=== PATIENT | male | born 1945 | race African-American/Black ===

== ENCOUNTER 2018-03-31 21:34 | Inpatient (IN) | payer OTHER, BC ==
--- NOTE | 2018-03-31 22:11 | PDOC ---
History of Present Illness <Eva Monsalve - Last Filed: 04/02/18 21:03> - History of Present Illness Initial Comments: 72 year old male with PMH of, status post CABG, PVD, presenting with cough, fever, and generalized weakness for the past day. Per his family he has been feeling very weak for the past day and actually fell yesterday morning at 1 AM but denied head trauma, LOC or other symptoms, stats that he fell because he felt very weak. He was febrile to 102 degrees at home and had a non-productive cough today. His blood pressure was also elevated to 170s at home and his family was worried because he "was not acting himself". Denies any nausea, vomiting, diarrhea, chest pain, SOB, or other symptoms. 03/31/18 22:13 <Kiarra Pickett - Last Filed: 04/03/18 15:19> - General Chief Complaint: SIRS, Suspected/Possible Stated Complaint: Altered Mental Status Time Seen by Provider: 03/31/18 22:10 Past History <Eva Monsalve - Last Filed: 04/02/18 21:03> - Past Medical History Anemia: No Asthma: No Cancer: Yes Cardiac Disorders: Yes (BY PASS) CVA: No CHF: No Dementia: No Diabetes: Yes GI Disorders: Yes Disorders: No HTN: Yes Hypercholesterolemia: Yes Liver Disease: Yes Seizures: No Thyroid Disease: Yes - Surgical History Abdominal Surgery: No Appendectomy: No Cardiac Surgery: Yes (BYPASS) Cholecystectomy: No Lung Surgery: No Neurologic Surgery: No Orthopedic Surgery: No - Suicide/Smoking/Psychosocial Hx Smoking Status: No Smoking History: Never smoked Have you smoked in the past 12 months: No Number of Cigarettes Smoked Daily: 0 If you are a former smoker, when did you quit?: 7 Information on smoking cessation initiated: No Hx Alcohol Use: No Drug/Substance Use Hx: No <Kiarra Pickett - Last Filed: 04/03/18 15:19> - Past Medical History Allergies/Adverse Reactions: Allergies Allergy/AdvReac Type Severity Reaction Status Date / Time No Known Allergies Allergy Verified 03/31/18 22:05 Home Medications: Ambulatory Orders Clonazepam 0.5 mg PO TID 07/04/12 Simvastatin [Zocor -] 40 mg PO DAILY 07/04/12 Zolpidem Tartrate [Ambien] 10 mg PO HS 07/04/12 Gabapentin 600 mg PO TID 03/31/18 Telmisartan/Hydrochlorothiazid [Telmisartan-Hctz 40-12.5 mg Tb] 1 tab PO DAILY 03/31/18 Amlodipine Besylate [Norvasc -] 10 mg PO DAILY #30 tablet 04/03/18 Cefuroxime Axetil [Ceftin -] 500 mg PO Q12H #14 tablet 04/03/18 Labetalol HCl [Normodyne -] 200 mg PO BID #60 tablet 04/03/18 Review of Systems - Review of Systems Constitutional: Yes: Chills, Diaphoresis, Fever, Loss of Appetite HEENTM: No: Eye Pain, Blurred Vision, Tearing Respiratory: Yes: Cough, Shortness of Breath, Wheezing, Productive cough. No: SOB with Exertion, SOB at Rest Cardiac (ROS): Yes: Lightheadedness. No: Chest Pain, Irregular Heart Rate, Palpitations, Syncope ABD/GI: No: Diarrhea, Nausea, Vomiting : No: Burning, Dysuria, Flank Pain Musculoskeletal: Yes: Muscle Weakness. No: Back Pain, Joint Pain, Muscle Pain Integumentary: No: Bruising, Lesions, Lumps Neurological: No: Headache, Numbness, Paresthesia, Pre-Existing Deficit, Seizure Psychiatric: No: Anxiety, Depression Hematologic/Lymphatic: No: Anemia, Blood Clots, Easy Bleeding <Kiarra Pickett - Last Filed: 04/03/18 15:19> *Physical Exam - Vital Signs Last Vital Signs Temp Pulse Resp BP Pulse Ox 102.8 F H 122 H 18 170/84 99 03/31/18 21:40 03/31/18 21:40 03/31/18 21:40 03/31/18 21:40 03/31/18 21:40 <Eva Monsalve - Last Filed: 04/02/18 21:03> - Vital Signs Last Vital Signs Temp Pulse Resp BP Pulse Ox 102.8 F H 122 H 18 170/84 99 03/31/18 21:40 03/31/18 21:40 03/31/18 21:40 03/31/18 21:40 03/31/18 21:40 - Physical Exam General Appearance: Yes: Nourished, Appropriately Dressed, Apparent Distress, Mild Distress HEENT: positive: EOMI, ASHLEY. negative: Normal ENT Inspection (dry mucous membrans) Neck: positive: Normal Thyroid, Supple. negative: Tender, Trachea midline, Rigid Respiratory/Chest: positive: Lungs Clear, Normal Breath Sounds, Respiratory Distress (mild respiratory distress with increased RR), Rapid RR. negative: Chest Tender, Accessory Muscle Use Cardiovascular: positive: Regular Rhythm, Tachycardia. negative: Regular Rate Gastrointestinal/Abdominal: positive: Normal Bowel Sounds, Flat, Soft. negative : Tender Lymphatic: negative: Adenopathy, Tenderness Musculoskeletal: positive: Normal Inspection. negative: Decreased Range of Motion Extremity: positive: Normal Capillary Refill, Normal Inspection, Normal Range of Motion. negative: Tender Integumentary: positive: Normal Color, Dry, Warm Neurologic: positive: Fully Oriented, Alert, Normal Mood/Affect, Normal Response , Motor Strength 5/5 <Kiarra Pickett - Last Filed: 04/03/18 15:19> Moderate Sedation - Procedure Monitoring Vital Signs: Procedure Monitoring Vital Signs Temperature 102.8 F H 03/31/18 21:40 Pulse Rate 122 H 03/31/18 21:40 Respiratory Rate 18 03/31/18 21:40 Blood Pressure 170/84 03/31/18 21:40 O2 Sat by Pulse Oximetry (%) 99 03/31/18 21:40 <Eva Monsalve - Last Filed: 04/02/18 21:03> - Procedure Monitoring Vital Signs: Procedure Monitoring Vital Signs Temperature 102.8 F H 03/31/18 21:40 Pulse Rate 122 H 03/31/18 21:40 Respiratory Rate 18 03/31/18 21:40 Blood Pressure 170/84 03/31/18 21:40 O2 Sat by Pulse Oximetry (%) 99 03/31/18 21:40 <Kiarra Pickett - Last Filed: 04/03/18 15:19> ED Treatment Course - LABORATORY CBC & Chemistry Diagram: 04/02/18 06:00 04/02/18 06:00 - ADDITIONAL ORDERS Additional order review: Laboratory Results 03/31/18 03/31/18 03/31/18 22:54 22:47 22:47 PT with INR 14.30 H INR 1.21 H PTT (Actin FS) 31.5 VBG pH 7.50 H POC VBG pCO2 34.4 L POC VBG pO2 49.3 H Mixed VBG HCO3 26.7 H Urine Color Yellow Urine Appearance Clear Urine pH 5.0 Ur Specific [place] 1.019 Urine Protein 1+ H Urine Glucose (UA) Negative Urine Ketones Negative Urine Blood 2+ H Urine Nitrite Negative Urine Bilirubin Negative Urine Urobilinogen Negative Ur Leukocyte Esterase Negative Urine WBC (Auto) <1 Urine RBC (Auto) <1 Urine Mucus Rare 03/31/18 22:47 RBC 4.80 MCV 87.4 MCHC 33.9 RDW 16.2 H MPV 8.2 Neutrophils % 83.4 H Lymphocytes % 3.4 L Monocytes % 12.3 H Eosinophils % 0.1 Basophils % 0.8 - Medications Given in the ED: ED Medications Discontinued Medications Generic Name Dose Route Start Last Admin Trade Name Presley PRN Reason Stop Dose Admin Acetaminophen 1,000 mg 03/31/18 22:12 03/31/18 23:27 Ofirmev Injection - IVPB 03/31/18 22:13 1,000 mg ONCE ONE Administration Azithromycin 500 mg/ Dextrose 250 mls @ 250 mls/hr 03/31/18 23:10 04/01/18 00 :06 IVPB 04/01/18 00:09 250 mls/hr ONCE ONE Administration Ceftriaxone Sodium 1 gm/ 50 mls @ 100 mls/hr 03/31/18 23:10 04/01/18 00:06 Dextrose IVPB 03/31/18 23:39 100 mls/hr ONCE ONE Administration Sodium Chloride 500 ml 03/31/18 23:09 03/31/18 23:27 Normal Saline - IV 03/31/18 23:10 500 ml ONCE ONE Administration <Eva Monsalve - Last Filed: 04/02/18 21:03> - LABORATORY CBC & Chemistry Diagram: 04/03/18 06:00 04/03/18 06:00 <Kiarra Pickett - Last Filed: 04/03/18 15:19> Medical Decision Making - Medical Decision Making 04/01/18 00:32 Patient Name: OSMAN HASSAN THIS IS A PRELIMINARY REPORT FROM [facility] DATE OF SERVICE: 2018-03-31 22:22:32 IMAGES: 2 EXAM: CHEST X-RAY PORTABLE* HISTORY: Rule out pneumonia COMPARISON: None. FINDINGS: Heart size is normal. Status post CABG. Lungs are clear. No pleural effusion. Tiny density overlying the peripheral right upper lobe is likely outside the patient. IMPRESSION: No acute pathology. <Eva Monsalve - Last Filed: 04/02/18 21:03> - Medical Decision Making 72 year old male presenting with fever,. tachycardia, tachypnea and generally appearing unwell after two days of cough and upper respiratory symptoms. CXR is clear without obvious sign of pneumonia. Patient's age, comorbidities, and septic presentation al are concerning for potential for acute decline in the outpatient setting, so will admit for observation. Patient antibiosed and given IV fluids + Tylenol with excellent relief of his symptoms. Spoke to hospitalists and patient admitted to med surg obs. <Kiarra Pickett - Last Filed: 04/03/18 15:19> *DC/Admit/Observation/Transfer <Eva Monsalve - Last Filed: 04/02/18 21:03> - Discharge Dispostion Decision to Admit order: Yes <Kiarra Pickett - Last Filed: 04/03/18 15:19> Diagnosis at time of Disposition: Pneumonia Qualifiers: Pneumonia type: due to unspecified organism Laterality: unspecified laterality Lung location: unspecified part of lung Qualified Code(s): J18.9 - Pneumonia, unspecified organism - Discharge Dispostion Condition at time of disposition: Improved
[2018-03-31] MEDS ORDERED: ACETAMINOPHEN 1000 MG/100 ML VIAL (NON FORMULARY) IVPB ONE (22:12)
[2018-03-31] MEDS ORDERED: SODIUM CHLORIDE 0.9% 500 ML INFUS.BAG IV ONE (23:09)
[2018-03-31] MEDS ORDERED: CEFTRIAXONE 1 GM in DEXTROSE 5%-WATER - 50 ML IVPB ONE (23:10)
[2018-03-31] MEDS ORDERED: AZITHROMYCIN IVPB 500 MG in DEXTROSE 5%-WATER - 250 ML IVPB ONE (23:10)
[2018-03-31 23:11] LABS: BASO % 0.8 % (0-2.0); EOS % 0.1 % (0-4.5); HEMATOCRIT 41.9 % (35.4-49); HEMOGLOBIN 14.2 GM/dL (11.7-16.9); LYMPH % 3.4 % (8-40); MCH 29.7 pg (25.7-33.7); MCHC 33.9 g/dl (32.0-35.9); MEAN CELL VOLUME 87.4 fl (80-96); MEAN PLT VOLUME 8.2 fl (7.5-11.1); MONO % 12.3 % (3.8-10.2); NEUT % 83.4 % (42.8-82.8); PLATELET COUNT 177 K/MM3 (134-434); RDW 16.2 % (11.9-15.9); WHITE BLOOD COUNT 11.2 K/mm3 (4.0-10.0)
[2018-03-31 23:12] LABS: VENOUS PC02 34.4 mmHg (38-52); VENOUS PH 7.5 (7.32-7.42); VENOUS PO2 49.3 mmHg (28-48)
[2018-03-31 23:15] LABS: URINE APPEARANCE CLEAR; URINE BILIRUBIN NEGATIVE (<2.0 mg/dL); URINE COLOR YELLOW; URINE GLUCOSE (UA) NEGATIVE (NEGATIVE); URINE KETONE NEGATIVE (NEGATIVE); URINE LEUK ESTERASE NEGATIVE (NEGATIVE); URINE NITRITE NEGATIVE (NEGATIVE); URINE PROTEIN 1+ (NEGATIVE); URINE UROBILINOGEN NEGATIVE mg/dL (0.2-1.0)
[2018-03-31 23:24] LABS: INR 1.21 (0.83-1.09); PROTHROMBIN TIME (PATIENT) 14.3 SEC (9.7-13.0)
[2018-03-31 23:26] LABS: ACTIVATED PTT 31.5 SECONDS (25.2-36.5)
[2018-03-31] MEDS ORDERED: ACETAMINOPHEN INJECTION 100 ML IVPB ONE (23:28)
[2018-03-31 23:34] LABS: URINE MUCUS RARE
[2018-04-01] MEDS ORDERED: CEFTRIAXONE 1 GM/50 ML BAG ONE (00:05)
[2018-04-01] MEDS ORDERED: AZITHROMYCIN IVPB 500 MG/250 ML BAG IVPB ONE (00:05)
--- NOTE | 2018-04-01 00:56 | PDOC ---
Attending Attestation - Resident Resident Name: Kiarra Pickett - ED Attending Attestation I have performed the following: I have examined & evaluated the patient, The case was reviewed & discussed with the resident, I agree w/resident's findings & plan - HPI HPI: 04/01/18 00:54 Pt comes with fever and cough; r/o pneumonia vs r/o influenza. - Physicial Exam PE: 04/01/18 00:54 Agree with resident exam - Medical Decision Making 04/01/18 00:54 Pt has a WBC elevation; his Chest looks like a bilat pneumonia; however was read as normal chest. Flu negative; we treated with ceftriaxone and zithrromax. Pt will be admitted to obs. Chem is still pending, as the bloods are being done manually in the lab today - everything backed up 04/01/18 01:01 Patient Name: OSMAN HASSAN THIS IS A PRELIMINARY REPORT FROM [facility] DATE OF SERVICE: 2018-03-31 22:22:32 IMAGES: 2 EXAM: CHEST X-RAY PORTABLE* HISTORY: Rule out pneumonia COMPARISON: None. FINDINGS: Heart size is normal. Status post CABG. Lungs are clear. No pleural effusion. Tiny density overlying the peripheral right upper lobe is likely outside the patient. IMPRESSION: No acute pathology.
[2018-04-01 01:46] LABS: ANION GAP 8 MMOL/L (8-16); BLOOD UREA NITROGEN 16 mg/dL (7-18); CALCIUM 8.4 mg/dL (8.5-10.1); CHLORIDE 103 mmol/L (98-107); CO2 26 mmol/L (21-32); CREATININE 1.2 mg/dL (0.55-1.3); GLUCOSE,RANDOM 144 mg/dL (74-106); POTASSIUM 3.2 mmol/L (3.5-5.1); SODIUM 137 mmol/L (136-145)
[2018-04-01 01:47] LABS: ALBUMIN 3.7 g/dl (3.4-5.0); ALK PHOS 79 U/L (45-117); BILIRUBIN,TOTAL 0.7 mg/dL (0.2-1); SGOT/AST 23 U/L (15-37); SGPT/ALT 16 U/L (13-61)
[2018-04-01] MEDS ORDERED: POTASSIUM CHLORIDE TABS 20 MEQ TABLET.ER (FP) PO ONE ×2 (01:59→03:37)
--- NOTE | 2018-04-01 02:58 | HP ---
CHIEF COMPLAINT: fever and general malaise PCP: Dr. De Souza HISTORY OF PRESENT ILLNESS: 72M w/ pmhx of HTN, HLD, CABG (7 years ago) presented to the hospital after complaints of persistent fever and generalized malaise x1 day. He states yesterday morning, he was getting up to go to the bathroom when he fell due to b /l leg weakness. He states the night prior he started to "not feel himself" and the next day, his malaise had worsened. He remembers falling, but denies any trauma to the head or body; reports the fall was witnessed by his . He denies LOC. Admits to fever and chills since last night, but denies chest pain, sob, n/v, abd pain, urinary/bowel symptoms, blood in urine/stool. After he had fallen, he took his temperature at home which was 102.8. ER course was notable for: (1) Temp 102.8, HR 122, WBC 11.2, K 3.2, Glu 14 (2) Flu swab (-), CXR neg (3) Rocephin 1gm, Zithromax 500 mg, IV Tylenol, NS 500 mL Recent Travel: Denies PAST MEDICAL HISTORY: HTN HLD neuropathy PAST SURGICAL HISTORY: CABG x 7 years ago Social History: Smoking: Denies Alcohol: Denies Drugs: Denies Family History: Denies Allergies No Known Allergies Allergy (Verified 03/31/18 22:05) HOME MEDICATIONS: Home Medications Medication Instructions Recorded Clonazepam 0.5 mg PO TID 07/04/12 Simvastatin [Zocor -] 40 mg PO DAILY 07/04/12 Zolpidem Tartrate [Ambien] 10 mg PO HS 07/04/12 Gabapentin 600 mg PO TID 03/31/18 Metoprolol Tartrate 25 mg PO BID 03/31/18 Telmisartan/Hydrochlorothiazid 1 tab PO DAILY 03/31/18 [Telmisartan-Hctz 40-12.5 mg Tb] REVIEW OF SYSTEMS CONSTITUTIONAL: +f/c, +generalized weakness, +malaise HEENT: +cough, -rhinorrhea, -nasal congestion CARDIOVASCULAR: -chest pain, -palpitations, -irregular heart rate, -peripheral edema RESPIRATORY: +dry cough, -sob, -[place], -orthopnea, -wheezing GASTROINTESTINAL: -abd pain/distension, -n/v, -c/d GENITOURINARY: -dysuria, frequency, hematuria MUSCULOSKELETAL: -myalgia, -arthralgia, -back pain NEUROLOGIC: +focal weakness, +tingling b/l toes, -mental status changes PHYSICAL EXAMINATION Vital Signs - 24 hr 03/31/18 21:40 Temperature 102.8 F H Pulse Rate 122 H Respiratory 18 Rate Blood Pressure 170/84 O2 Sat by Pulse 99 Oximetry (%) GENERAL: AAOx3. NAD. Resting comfortable. HEENT: AT/NC. EOMI. ASHLEY. Dry mucus membranes. NECK: Normal range of motion, supple without lymphadenopathy, JVD, or masses. LUNGS: Decreased BS b/l. HEART: RRR. Normal, S1, S2. +systolic murmur LUSB. Vertical surgical scar seen on R side of chest. ABDOMEN: Soft, NT/ND. +BS in all 4Q's. No masses noted. MUSCULOSKELETAL: Normal range of motion at all joints. No bony deformities or tenderness. No CVA tenderness. EXTREMITIES: 2+ dorsalis pedis pulses, no peripheral edema noted b/l. NEUROLOGICAL: Cranial nerves II-XII intact. Normal speech. Normal gait. Laboratory Results - last 24 hr 03/31/18 03/31/18 03/31/18 22:40 22:47 22:47 WBC 11.2 H RBC 4.80 Hgb 14.2 Hct 41.9 MCV 87.4 MCH 29.7 MCHC 33.9 RDW 16.2 H Plt Count 177 MPV 8.2 Absolute Neuts (auto) 9.3 H Neutrophils % 83.4 H Lymphocytes % 3.4 L Monocytes % 12.3 H Eosinophils % 0.1 Basophils % 0.8 Nucleated RBC % 0 PT with INR 14.30 H INR 1.21 H PTT (Actin FS) 31.5 VBG pH POC VBG pCO2 POC VBG pO2 Mixed VBG HCO3 Sodium Potassium Chloride Carbon Dioxide Anion Gap BUN Creatinine Creat Clearance w eGFR Random Glucose Lactic Acid Calcium Total Bilirubin AST ALT Alkaline Phosphatase Troponin I Total Protein Albumin Urine Color Urine Appearance Urine pH Ur Specific [place] Urine Protein Urine Glucose (UA) Urine Ketones Urine Blood Urine Nitrite Urine Bilirubin Urine Urobilinogen Ur Leukocyte Esterase Urine WBC (Auto) Urine RBC (Auto) Urine Mucus Influenza A (Rapid) Negative Influenza B (Rapid) Negative 03/31/18 03/31/18 03/31/18 22:47 22:47 22:47 WBC RBC Hgb Hct MCV MCH MCHC RDW Plt Count MPV Absolute Neuts (auto) Neutrophils % Lymphocytes % Monocytes % Eosinophils % Basophils % Nucleated RBC % PT with INR INR PTT (Actin FS) VBG pH 7.50 H POC VBG pCO2 34.4 L POC VBG pO2 49.3 H Mixed VBG HCO3 26.7 H Sodium 137 Potassium 3.2 L Chloride 103 Carbon Dioxide 26 Anion Gap 8 BUN 16 Creatinine 1.2 Creat Clearance w eGFR 59.18 Random Glucose 144 H Lactic Acid Calcium 8.4 L Total Bilirubin 0.7 AST 23 ALT 16 Alkaline Phosphatase 79 Troponin I 0.04 Total Protein 8.0 Albumin 3.7 Urine Color Urine Appearance Urine pH Ur Specific [place] Urine Protein Urine Glucose (UA) Urine Ketones Urine Blood Urine Nitrite Urine Bilirubin Urine Urobilinogen Ur Leukocyte Esterase Urine WBC (Auto) Urine RBC (Auto) Urine Mucus Influenza A (Rapid) Influenza B (Rapid) 03/31/18 03/31/18 22:54 22:54 WBC RBC Hgb Hct MCV MCH MCHC RDW Plt Count MPV Absolute Neuts (auto) Neutrophils % Lymphocytes % Monocytes % Eosinophils % Basophils % Nucleated RBC % PT with INR INR PTT (Actin FS) VBG pH POC VBG pCO2 POC VBG pO2 Mixed VBG HCO3 Sodium Potassium Chloride Carbon Dioxide Anion Gap BUN Creatinine Creat Clearance w eGFR Random Glucose Lactic Acid 1.5 Calcium Total Bilirubin AST ALT Alkaline Phosphatase Troponin I Total Protein Albumin Urine Color Yellow Urine Appearance Clear Urine pH 5.0 Ur Specific [place] 1.019 Urine Protein 1+ H Urine Glucose (UA) Negative Urine Ketones Negative Urine Blood 2+ H Urine Nitrite Negative Urine Bilirubin Negative Urine Urobilinogen Negative Ur Leukocyte Esterase Negative Urine WBC (Auto) <1 Urine RBC (Auto) <1 Urine Mucus Rare Influenza A (Rapid) Influenza B (Rapid) ASSESSMENT/PLAN: 72M w/ pmhx of HTN, HLD, who presented with fever and generalized malaise admitted for sepsis 2/2 atypical pneumonia. #Sepsis 2/2 Atypical Pneumonia' -CXR neg with no infiltrates seen, could be viral -Rocephin 1gm IVPB; due to prolonged QTc (503 ms), will d/c Azithromycin and give Doxycycline 100 mg BID IVPB instead -Tylenol 650 mg Q6H PRN for fever -Legionella/S. Pneumo Urine Ag's ordered -IVf #Hypokalemia; 3.2 -KCl 10 mEq x 2 bags, KCl 20 mg PO -replete PRN; trend BMP -check Mg #HTN -Resume home meds once med rec'd #HLD -Resume home meds once med rec'd #Neuropathy -Resume home meds once med rec'd #Ppx -SQH #FEN -IVf -recheck lytes in AM (K+) -sodium-controlled diet dispo -full code -med to med-surg obs -needs med rec Visit type - Emergency Visit Emergency Visit: Yes ED Registration Date: 04/01/18 Care time: The patient presented to the Emergency Department on the above date and was hospitalized for further evaluation of their emergent condition. - New Patient This patient is new to me today: Yes Date on this admission: 04/01/18 - Critical Care Critical Care patient: No
[2018-04-01] MEDS ORDERED: SODIUM CHLORIDE 1,000 ML IV SCH (03:00)
[2018-04-01] MEDS ORDERED: KCL 10 MEQ IVPB 10 MEQ/100 ML INFUS.BAG IVPB ONE (03:37)
[2018-04-01] MEDS: KCL 10 MEQ IVPB 10 MEQ/100 ML INFUS.BAG IVPB SCH ×2 (03:43→06:34)
[2018-04-01] MEDS ORDERED: ACETAMINOPHEN 325 MG TABLET (FP) PO PRN (03:51)
[2018-04-01 04:33] VITALS: BMI 28.3
--- NOTE | 2018-04-01 04:51 | PN ---
Teaching Attending Note Name of Resident: Cherelle Shane ATTENDING PHYSICIAN STATEMENT I saw and evaluated the patient. I reviewed the resident's note and discussed the case with the resident. I agree with the resident's findings and plan as documented. SUBJECTIVE: Patient is a 72 year old man with PMH of CABG (7 years ago), HLD, HTN and PVD presenting with nonproductive cough, fever, and generalized weakness for the past day. Per his family he has been feeling very weak for the past day and actually fell yesterday morning at 1 AM but denied head trauma, LOC or other symptoms, stats that he fell because he felt very weak. He was febrile to 102 degrees at home and had a non-productive cough today. His blood pressure was also elevated to 170s at home and his family was worreid becuase he "was not acting himself". Denies any nausea, vomiting, diarrhea, chest pain, SOB, or other symptoms. OBJECTIVE: Alert Vital Signs Period Temp Pulse Resp BP Sys/Fischer Pulse Ox Last 24 Hr 99 F-102.8 F 74-122 16-18 127-170/65-84 96-99 HEENT: No Jaundice, eye redness or discharge, PERRLA, EOMI. Normocephalic, atraumatic. External ears are normal and hearing is grossly intact. No nasal discharge. Neck: Supple, nontender. No palpable adenopathy or thyromegaly. No JVD Chest: Good effort. Clear to auscultation and percussion. Heart: Regular. No S3, rub or murmur Abdomen: Not distended, soft, nontender and no HSM. No rebound or guarding. Normoactive bowel sounds. Ext: Peripheral pulses intact. No leg edema. Skin: Warm and dry. No petechiae, rash or ecchymosis. Neuro: Alert. Oriented x3. CN 2-12 grossly intact. Sensation grossly intact in all four extremities and DTR are symmetric. Current Medications Generic Name Dose Route Start Last Admin Trade Name Freq PRN Reason Stop Dose Admin Acetaminophen 650 mg 04/01/18 03:51 Tylenol - PO Q6H PRN FEVER Heparin Sodium (Porcine) 5,000 unit 04/01/18 06:00 Heparin - SQ TID KEELEY Azithromycin 500 mg in 250 mls @ 250 mls/hr 04/01/18 22:00 Zithromax 500mg Ivpb (Pre-Docked) IVPB HS KEELEY Ceftriaxone Sodium 1 gm/ 50 mls @ 100 mls/hr 04/01/18 22:00 Dextrose IVPB HS KEELEY Protocol Sodium Chloride 1,000 mls @ 75 mls/hr 04/01/18 03:00 04/01/18 03:36 Normal Saline - IV 04/02/18 16:19 75 mls/hr ASDIR KEELEY Administration Potassium Chloride 10 meq in 100 mls @ 100 mls/hr 04/01/18 03:15 04/01/18 03: 43 Potassium Chloride 10 Meq Premix Ivpb - IVPB 04/01/18 05:14 100 mls/hr Q60M KEELEY Administration Metoprolol Tartrate 25 mg 04/01/18 10:00 Lopressor - PO BID [facility] Potassium Chloride 20 meq 04/01/18 10:00 K-Dur - PO DAILY [facility] Home Medications Medication Instructions Recorded Clonazepam 0.5 mg PO TID 07/04/12 Simvastatin [Zocor -] 40 mg PO DAILY 07/04/12 Zolpidem Tartrate [Ambien] 10 mg PO HS 07/04/12 Gabapentin 600 mg PO TID 03/31/18 Metoprolol Tartrate 25 mg PO BID 03/31/18 Telmisartan/Hydrochlorothiazid 1 tab PO DAILY 03/31/18 [Telmisartan-Hctz 40-12.5 mg Tb] Abnormal Lab Results 03/31/18 03/31/18 03/31/18 22:47 22:47 22:47 WBC 11.2 H RDW 16.2 H Absolute Neuts (auto) 9.3 H Neutrophils % 83.4 H Lymphocytes % 3.4 L Monocytes % 12.3 H PT with INR 14.30 H INR 1.21 H VBG pH 7.50 H POC VBG pCO2 34.4 L POC VBG pO2 49.3 H Mixed VBG HCO3 26.7 H Potassium Random Glucose Calcium Urine Protein Urine Blood 03/31/18 03/31/18 22:47 22:54 WBC RDW Absolute Neuts (auto) Neutrophils % Lymphocytes % Monocytes % PT with INR INR VBG pH POC VBG pCO2 POC VBG pO2 Mixed VBG HCO3 Potassium 3.2 L Random Glucose 144 H Calcium 8.4 L Urine Protein 1+ H Urine Blood 2+ H ASSESSMENT AND PLAN: 1. Sepsis due to Atypical Pneumonia - No acute infiltrate on CXR - may be viral. Flu swab is negative. QTc is prolonged. Being treated with IV Rocephin and Azithromycin. Check urine legionella antigen. Hypokalemia may be due to HCTZ. Check Mg+ and getting KCL. Hypertension improved. 2. DVT prophylaxis - Lovenox 40 mg SQ q 24 hours. 3. Advance directives - Full code
[2018-04-01] MEDS: HEPARIN NA (PORCINE) 5,000 UNITS/ML 1ML VIAL SQ SCH ×3 (05:57→21:09)
[2018-04-01] MEDS ORDERED: GABAPENTIN 300 MG CAPSULE (FP) PO SCH (06:00)
[2018-04-01] MEDS ORDERED: PT OWN MED DRAWER 7, Y5N ONE ×2 (09:00→20:57)
[2018-04-01] MEDS: POTASSIUM CHLORIDE TABS 20 MEQ TABLET.ER (FP) PO SCH (09:43)
[2018-04-01] MEDS: METOPROLOL TARTRATE 25 MG TABLET (FP) PO SCH ×2 (09:43→21:09)
[2018-04-01] MEDS: DOXYCYCLINE INJECTION 100 MG in DEXTROSE 5%-WATER - 100 ML IVPB SCH ×2 (09:43→21:09)
[2018-04-01] MEDS ORDERED: PATIENT'S OWN MEDICATION (NON-FORMULARY) (Telmisartan/Hydrochlorothiazid [Telmisartan-Hctz PO SCH (10:00)
[2018-04-01] MEDS ORDERED: PATIENT'S OWN MEDICATION (NON-FORMULARY) (Simvastatin 40 MG) PO SCH (10:00)
--- NOTE | 2018-04-01 12:20 | PN ---
Progress Note (short form) - Note Progress Note: Vital Signs Temperature 99 F 04/01/18 10:00 Pulse Rate 81 04/01/18 10:00 Respiratory Rate 20 04/01/18 11:00 Blood Pressure 152/80 04/01/18 10:00 O2 Sat by Pulse Oximetry (%) 92 L 04/01/18 11:00 CBCD WBC 11.2 K/mm3 (4.0-10.0) H 03/31/18 22:47 RBC 4.80 M/mm3 (4.00-5.60) 03/31/18 22:47 Hgb 14.2 GM/dL (11.7-16.9) 03/31/18 22:47 Hct 41.9 % (35.4-49) 03/31/18 22:47 MCV 87.4 fl (80-96) 03/31/18 22:47 MCHC 33.9 g/dl (32.0-35.9) 03/31/18 22:47 RDW 16.2 % (11.9-15.9) H 03/31/18 22:47 Plt Count 177 K/MM3 (134-434) 03/31/18 22:47 MPV 8.2 fl (7.5-11.1) 03/31/18 22:47 CMP Sodium 137 mmol/L (136-145) 03/31/18 22:47 Potassium 3.2 mmol/L (3.5-5.1) L 03/31/18 22:47 Chloride 103 mmol/L (98-107) 03/31/18 22:47 Carbon Dioxide 26 mmol/L (21-32) 03/31/18 22:47 Anion Gap 8 MMOL/L (8-16) 03/31/18 22:47 BUN 16 mg/dL (7-18) 03/31/18 22:47 Creatinine 1.2 mg/dL (0.55-1.3) 03/31/18 22:47 Creat Clearance w eGFR 59.18 (>60) 03/31/18 22:47 Random Glucose 144 mg/dL (74-106) H 03/31/18 22:47 Calcium 8.4 mg/dL (8.5-10.1) L 03/31/18 22:47 Total Bilirubin 0.7 mg/dL (0.2-1) 03/31/18 22:47 AST 23 U/L (15-37) 03/31/18 22:47 ALT 16 U/L (13-61) 03/31/18 22:47 Alkaline Phosphatase 79 U/L (45-117) 03/31/18 22:47 Total Protein 8.0 g/dl (6.4-8.2) 03/31/18 22:47 Albumin 3.7 g/dl (3.4-5.0) 03/31/18 22:47 CARDIAC ENZYMES Troponin I 0.04 ng/ml (0.00-0.05) 03/31/18 22:47 Current Medications Generic Name Dose Route Start Last Admin Trade Name Freq PRN Reason Stop Dose Admin Acetaminophen 650 mg 04/01/18 03:51 04/01/18 08:44 Tylenol - PO 650 mg Q6H PRN Administration FEVER Heparin Sodium (Porcine) 5,000 unit 04/01/18 06:00 04/01/18 05:57 Heparin - SQ 5,000 unit TID KEELEY Administration Ceftriaxone Sodium 1 gm/ 50 mls @ 100 mls/hr 04/01/18 22:00 Dextrose IVPB HS KEELEY Protocol Sodium Chloride 1,000 mls @ 75 mls/hr 04/01/18 03:00 04/01/18 03:36 Normal Saline - IV 04/02/18 16:19 75 mls/hr ASDIR KEELEY Administration Doxycycline Hyclate 100 mg/ 100 mls @ 100 mls/hr 04/01/18 10:00 04/01/18 09: 43 Dextrose IVPB 100 mls/hr BID KEELEY Administration Metoprolol Tartrate 25 mg 04/01/18 10:00 04/01/18 09:43 Lopressor - PO 25 mg BID KEELEY Administration Potassium Chloride 20 meq 04/01/18 10:00 04/01/18 09:43 K-Dur - PO 20 meq DAILY KEELEY Administration Home Medications Medication Instructions Recorded Clonazepam 0.5 mg PO TID 07/04/12 Simvastatin [Zocor -] 40 mg PO DAILY 07/04/12 Zolpidem Tartrate [Ambien] 10 mg PO HS 07/04/12 Gabapentin 600 mg PO TID 03/31/18 Metoprolol Tartrate 25 mg PO BID 03/31/18 Telmisartan/Hydrochlorothiazid 1 tab PO DAILY 03/31/18 [Telmisartan-Hctz 40-12.5 mg Tb]
--- NOTE | 2018-04-01 16:38 | EKG ---
Test Reason : Blood Pressure : / mmHG Vent. Rate : 116 BPM Atrial Rate : 116 BPM P-R Int : 152 ms QRS Dur : 120 ms QT Int : 362 ms P-R-T Axes : 070 089 035 degrees QTc Int : 503 ms SINUS TACHYCARDIA RIGHT BUNDLE BRANCH BLOCK ABNORMAL ECG WHEN COMPARED WITH ECG OF 27-DEC-2010 20:33, RIGHT BUNDLE BRANCH BLOCK IS NOW PRESENT Confirmed by Racahel Bates ([id number]) on 04/01/2018 4:37:54 PM Referred By: Confirmed By:Rachael Bates
[2018-04-01] MEDS ORDERED: amLODIPine BESYLATE 5 MG TABLET (FP) PO SCH (19:00)
[2018-04-01] MEDS ORDERED: DEXTROSE 5%-WATER - 50 ML IVPB ONE (20:55)
[2018-04-01] MEDS ORDERED: cefTRIAXone SODIUM 1 GM VIAL ONE (20:55)
[2018-04-01] MEDS: CEFTRIAXONE 1 GM in DEXTROSE 5%-WATER - 50 ML IVPB SCH (21:10)
[2018-04-01] MEDS ORDERED: MELATONIN 5 MG TABLETS PO ONE (21:59)
[2018-04-01] MEDS ORDERED: AZITHROMYCIN IVPB 500 MG/250 ML BAG IVPB SCH (22:00)
[2018-04-02] MEDS: HEPARIN NA (PORCINE) 5,000 UNITS/ML 1ML VIAL SQ SCH ×3 (06:47→22:07)
[2018-04-02 07:10] LABS: BASO % 0.4 % (0-2.0); HEMATOCRIT 52.4 % (35.4-49); HEMOGLOBIN 17.9 GM/dL (11.7-16.9); LYMPH % 14.5 % (8-40); MCH 29.9 pg (25.7-33.7); MCHC 34.2 g/dl (32.0-35.9); MEAN CELL VOLUME 87.5 fl (80-96); MEAN PLT VOLUME 8.3 fl (7.5-11.1); MONO % 12.4 % (3.8-10.2); NEUT % 72.7 % (42.8-82.8); PLATELET COUNT 211 K/MM3 (134-434); RBC 5.99 M/mm3 (4.00-5.60); RDW 16.3 % (11.9-15.9); WHITE BLOOD COUNT 10.3 K/mm3 (4.0-10.0)
[2018-04-02 07:33] LABS: ALBUMIN 3.9 g/dl (3.4-5.0); ALK PHOS 89 U/L (45-117); ANION GAP 10 MMOL/L (8-16); BILIRUBIN,TOTAL 0.7 mg/dL (0.2-1); BLOOD UREA NITROGEN 12 mg/dL (7-18); CALCIUM 8.7 mg/dL (8.5-10.1); CHLORIDE 105 mmol/L (98-107); CO2 23 mmol/L (21-32); CREATININE 0.9 mg/dL (0.55-1.3); GLUCOSE,RANDOM 144 mg/dL (74-106); POTASSIUM 3.2 mmol/L (3.5-5.1); SGOT/AST 32 U/L (15-37); SGPT/ALT 19 U/L (13-61); SODIUM 138 mmol/L (136-145); TOT PROT 9.2 g/dl (6.4-8.2)
[2018-04-02] MEDS ORDERED: POTASSIUM CHLORIDE TABS 20 MEQ TABLET.ER (FP) PO ONE (08:12)
--- NOTE | 2018-04-02 08:59 | PN ---
Physical Exam: SUBJECTIVE: Patient seen and examined at bedside. Nurse reported patient vomited green emesis and had SBP > 180. Patient reports RUQ abdominal pain and no bowel movements. Denies chest pain, SOB. OBJECTIVE: Vital Signs Period Temp Pulse Resp BP Sys/Fischer Pulse Ox Last 24 Hr 97.9 F-99 F 65-83 18-20 152-188/76-107 92 GENERAL: A&Ox3, no acute distress EYES: PERRLA, EOMI ENT: Moist mucus membranes NECK: No JVD LUNGS: CTA, no wheezes HEART: RRR, no murmurs ABDOMEN: Soft, tender to palpation in the RUQ and RLQ, BS present MUSCULOSKELETAL: No CVA Tenderness EXTREMITIES: 2+ pulses, no edema. NEUROLOGICAL: Cranial nerves II-XII intact. Laboratory Results - last 24 hr 04/01/18 04/02/18 04/02/18 07:50 06:00 06:00 WBC 10.3 H RBC 5.99 H Hgb 17.9 H Hct 52.4 H D MCV 87.5 MCH 29.9 MCHC 34.2 RDW 16.3 H Plt Count 211 MPV 8.3 Absolute Neuts (auto) 7.5 Neutrophils % 72.7 Lymphocytes % 14.5 D Monocytes % 12.4 H Eosinophils % 0.0 D Basophils % 0.4 Nucleated RBC % 0 Sodium 138 Potassium 3.2 L Chloride 105 Carbon Dioxide 23 Anion Gap 10 BUN 12 Creatinine 0.9 Creat Clearance w eGFR > 60 Random Glucose 144 H Calcium 8.7 Magnesium 2.4 Total Bilirubin 0.7 AST 32 ALT 19 Alkaline Phosphatase 89 Total Protein 9.2 H Albumin 3.9 Active Medications Generic Name Dose Route Start Last Admin Trade Name Angeloq PRN Reason Stop Dose Admin Acetaminophen 650 mg 04/01/18 03:51 04/01/18 08:44 Tylenol - PO 650 mg Q6H PRN Administration FEVER Amlodipine Besylate 10 mg 04/02/18 10:00 Norvasc - PO DAILY KEELEY Heparin Sodium (Porcine) 5,000 unit 04/01/18 06:00 04/02/18 06:47 Heparin - SQ Not Given TID KEELEY Ceftriaxone Sodium 1 gm/ 50 mls @ 100 mls/hr 04/01/18 22:00 04/01/18 21:10 Dextrose IVPB 100 mls/hr HS KEELEY Administration Protocol Doxycycline Hyclate 100 mg/ 100 mls @ 100 mls/hr 04/01/18 10:00 04/01/18 21: 09 Dextrose IVPB 100 mls/hr BID [facility] Administration Metoprolol Tartrate 25 mg 04/01/18 10:00 04/01/18 21:09 Lopressor - PO 25 mg BID KEELEY Administration Potassium Chloride 20 meq 04/01/18 10:00 04/01/18 09:43 K-Dur - PO 20 meq DAILY KEE[facility] Administration ASSESSMENT/PLAN: 72M w/ pmhx of HTN, HLD, who presented with fever and generalized malaise admitted for sepsis 2/2 atypical pneumonia. #Sepsis 2/2 Atypical Pneumonia: will continue treatment today -continue rocephin 1gm and doxycycline 100mg BID day 2 -Tylenol 650 mg Q6H PRN for fever -Legionella/S. Pneumo Urine antigens are negative #Hypokalemia: potassium still 3.2, will continue to replete with 40mEq today, hold the 20mg dose for today -replete PRN; trend BMP -check Mg in morning #Hypertension: patient was hypertensive this morning with SBP > 100 -continue home metoprolol 25 BID -increase amlodipine to 10mg this morning #Hyperlipidemia: chronic -no additional therapy #Prophylaxis -heparin subq #FEN -Not on standing fluids, only what is given through antibiotics -replete potassium, continue to monitor -sodium-controlled diet #Disposition -full code -admitted to medicine, anticipating discharge within 1-2 days -will reconcile meds today Visit type - Emergency Visit Emergency Visit: No - New Patient This patient is new to me today: Yes Date on this admission: 04/02/18 - Critical Care Critical Care patient: No
[2018-04-02] MEDS: METOPROLOL TARTRATE 25 MG TABLET (FP) PO SCH ×2 (09:13→22:07)
[2018-04-02] MEDS: amLODIPine BESYLATE 10 MG TABLET (FP) PO SCH (09:13)
[2018-04-02] MEDS: DOXYCYCLINE INJECTION 100 MG in DEXTROSE 5%-WATER - 100 ML IVPB SCH ×2 (09:13→22:58)
[2018-04-02] MEDS ORDERED: METOPROLOL TARTRATE 25 MG TABLET (FP) PO SCH (10:27)
[2018-04-02] MEDS ORDERED: METOPROLOL TARTRATE 50 MG TABLET (FP) PO ONE (15:25)
--- NOTE | 2018-04-02 18:15 | PN ---
Teaching Attending Note Name of Resident: Cricket Hernandez ATTENDING PHYSICIAN STATEMENT I saw and evaluated the patient. I reviewed the resident's note and discussed the case with the resident. I agree with the resident's findings and plan as documented. SUBJECTIVE: Patient is comfortable , feels better OBJECTIVE: Vital Signs Temperature 97.8 F 04/02/18 18:00 Pulse Rate 103 H 04/02/18 18:00 Respiratory Rate 20 04/02/18 18:00 Blood Pressure 160/93 04/02/18 18:00 O2 Sat by Pulse Oximetry (%) 94 L 04/02/18 09:00 Initial Vital Signs Temp Pulse Resp BP Pulse Ox 102.8 F H 122 H 18 170/84 99 03/31/18 21:40 03/31/18 21:40 03/31/18 21:40 03/31/18 21:40 03/31/18 21:40 GENERAL: A&Ox3, no acute distress EYES: PERRLA, EOMI ENT: Moist mucus membranes NECK: No JVD LUNGS: CTA, no wheezes HEART: RRR, no murmurs ABDOMEN: Soft, tender to palpation in the RUQ and RLQ, BS present MUSCULOSKELETAL: No CVA Tenderness EXTREMITIES: 2+ pulses, no edema. NEUROLOGICAL: Cranial nerves II-XII intact. CBCD WBC 10.3 K/mm3 (4.0-10.0) H 04/02/18 06:00 RBC 5.99 M/mm3 (4.00-5.60) H 04/02/18 06:00 Hgb 17.9 GM/dL (11.7-16.9) H 04/02/18 06:00 Hct 52.4 % (35.4-49) H D 04/02/18 06:00 MCV 87.5 fl (80-96) 04/02/18 06:00 MCHC 34.2 g/dl (32.0-35.9) 04/02/18 06:00 RDW 16.3 % (11.9-15.9) H 04/02/18 06:00 Plt Count 211 K/MM3 (134-434) 04/02/18 06:00 MPV 8.3 fl (7.5-11.1) 04/02/18 06:00 CMP Sodium 138 mmol/L (136-145) 04/02/18 06:00 Potassium 3.2 mmol/L (3.5-5.1) L 04/02/18 06:00 Chloride 105 mmol/L (98-107) 04/02/18 06:00 Carbon Dioxide 23 mmol/L (21-32) 04/02/18 06:00 Anion Gap 10 MMOL/L (8-16) 04/02/18 06:00 BUN 12 mg/dL (7-18) 04/02/18 06:00 Creatinine 0.9 mg/dL (0.55-1.3) 04/02/18 06:00 Creat Clearance w eGFR > 60 (>60) 04/02/18 06:00 Random Glucose 144 mg/dL (74-106) H 04/02/18 06:00 Calcium 8.7 mg/dL (8.5-10.1) 04/02/18 06:00 Total Bilirubin 0.7 mg/dL (0.2-1) 04/02/18 06:00 AST 32 U/L (15-37) 04/02/18 06:00 ALT 19 U/L (13-61) 04/02/18 06:00 Alkaline Phosphatase 89 U/L (45-117) 04/02/18 06:00 Total Protein 9.2 g/dl (6.4-8.2) H 04/02/18 06:00 Albumin 3.9 g/dl (3.4-5.0) 04/02/18 06:00 CARDIAC ENZYMES Troponin I 0.04 ng/ml (0.00-0.05) 03/31/18 22:47 Current Medications Generic Name Dose Route Start Last Admin Trade Name Presley PRN Reason Stop Dose Admin Acetaminophen 650 mg 04/01/18 03:51 04/01/18 08:44 Tylenol - PO 650 mg Q6H PRN Administration FEVER Amlodipine Besylate 10 mg 04/02/18 10:00 04/02/18 09:13 Norvasc - PO 10 mg DAILY [facility] Administration Heparin Sodium (Porcine) 5,000 unit 04/01/18 06:00 04/02/18 14:43 Heparin - SQ 5,000 unit TID [facility] Administration Ceftriaxone Sodium 1 gm/ 50 mls @ 100 mls/hr 04/01/18 22:00 04/01/18 21:10 Dextrose IVPB 100 mls/hr HS [facility] Administration Protocol Doxycycline Hyclate 100 mg/ 100 mls @ 100 mls/hr 04/01/18 10:00 04/02/18 09: 13 Dextrose IVPB 100 mls/hr BID [facility] Administration Metoprolol Tartrate 50 mg 04/02/18 22:00 Lopressor - PO BID KEE[facility] Potassium Chloride 20 meq 04/01/18 10:00 04/01/18 09:43 K-Dur - PO 20 meq DAILY [facility] Administration Home Medications Medication Instructions Recorded Clonazepam 0.5 mg PO TID 07/04/12 Simvastatin [Zocor -] 40 mg PO DAILY 07/04/12 Zolpidem Tartrate [Ambien] 10 mg PO HS 07/04/12 Gabapentin 600 mg PO TID 03/31/18 Metoprolol Tartrate 25 mg PO BID 03/31/18 Telmisartan/Hydrochlorothiazid 1 tab PO DAILY 03/31/18 [Telmisartan-Hctz 40-12.5 mg Tb] ASSESSMENT AND PLAN: 72M w/ pmhx of HTN, HLD, who presented with fever and generalized malaise admitted for sepsis 2/2 atypical pneumonia. #Sepsis due to Pneumonia: continue rocephin 1gm and doxycycline 100mg BID day #Hypokalemia: potassium still 3.2, will continue to replete. #Hypertension: patient was hypertensive this morning with SBP > 100, start the patient on Labetolol, increased amlodipine to 10mg this morning #Hyperlipidemia: continue with lipitor #Prophylaxis: heparin subq
[2018-04-02] MEDS ORDERED: cefTRIAXone SODIUM 1 GM VIAL ONE (21:40)
[2018-04-02] MEDS ORDERED: DEXTROSE 5%-WATER - 50 ML IVPB ONE (21:40)
[2018-04-02] MEDS ORDERED: PT OWN MED DRAWER 7, Y5N ONE (21:42)
[2018-04-02] MEDS: CEFTRIAXONE 1 GM in DEXTROSE 5%-WATER - 50 ML IVPB SCH (22:06)
[2018-04-02] MEDS: ATORVASTATIN CA 40 MG TABLET (FP) PO SCH (22:07)
[2018-04-03] MEDS ORDERED: hydrALAZINE HCL 10 MG TABLET PO ONE ×2 (01:05→03:38)
[2018-04-03 02:27] LABS: MAGNESIUM 2.6 mg/dL (1.8-2.4); PHOSPHOROUS 3.2 mg/dL (2.5-4.9); POTASSIUM 3.4 mmol/L (3.5-5.1)
[2018-04-03] MEDS: HEPARIN NA (PORCINE) 5,000 UNITS/ML 1ML VIAL SQ SCH ×3 (05:54→22:06)
[2018-04-03 07:03] LABS: HEMATOCRIT 54.2 % (35.4-49); HEMOGLOBIN 18.6 GM/dL (11.7-16.9); MCH 29.6 pg (25.7-33.7); MCHC 34.3 g/dl (32.0-35.9); MEAN CELL VOLUME 86.2 fl (80-96); MEAN PLT VOLUME 8.2 fl (7.5-11.1); PLATELET COUNT 264 K/MM3 (134-434); RBC 6.29 M/mm3 (4.00-5.60); RDW 16.6 % (11.9-15.9); WHITE BLOOD COUNT 15.5 K/mm3 (4.0-10.0)
[2018-04-03 07:36] LABS: ANION GAP 13 MMOL/L (8-16); BLOOD UREA NITROGEN 22 mg/dL (7-18); CALCIUM 9.5 mg/dL (8.5-10.1); CHLORIDE 106 mmol/L (98-107); CO2 22 mmol/L (21-32); CREATININE 1.1 mg/dL (0.55-1.3); GLUCOSE,RANDOM 158 mg/dL (74-106); MAGNESIUM 2.7 mg/dL (1.8-2.4); POTASSIUM 3.4 mmol/L (3.5-5.1); SODIUM 141 mmol/L (136-145)
[2018-04-03] MEDS ORDERED: PT OWN MED DRAWER 7, Y5N ONE ×2 (09:47→09:53)
[2018-04-03] MEDS: POTASSIUM CHLORIDE TABS 20 MEQ TABLET.ER (FP) PO SCH (09:55)
[2018-04-03] MEDS: DOXYCYCLINE INJECTION 100 MG in DEXTROSE 5%-WATER - 100 ML IVPB SCH ×2 (09:55→22:06)
[2018-04-03] MEDS: METOPROLOL TARTRATE 25 MG TABLET (FP) PO SCH (09:55)
[2018-04-03] MEDS: amLODIPine BESYLATE 10 MG TABLET (FP) PO SCH (09:55)
[2018-04-03] MEDS ORDERED: LABETALOL HCL 200 MG TABLET (FP) PO ONE (10:12)
[2018-04-03] MEDS: LABETALOL HCL 200 MG TABLET (FP) PO SCH ×2 (10:31→22:06)
[2018-04-03] MEDS ORDERED: hydrALAZINE HCL 10 MG TABLET PO SCH (14:00)
--- NOTE | 2018-04-03 16:29 | PN ---
Physical Exam: SUBJECTIVE: Patient seen and examined at bedside. No acute events overnight. OBJECTIVE: Last Vital Signs Temp Pulse Resp BP Pulse Ox 97.2 F L 86 18 125/81 94 L 04/03/18 15:39 04/03/18 15:39 04/03/18 15:39 04/03/18 15:39 04/03/18 09:00 GENERAL: AAOx3. NAD. Resting comfortable. HEENT: AT/NC. EOMI. ASHLEY. Dry mucus membranes. NECK: Normal range of motion, supple without lymphadenopathy, JVD, or masses. LUNGS: Decreased BS b/l. HEART: RRR. Normal, S1, S2. +systolic murmur LUSB. Vertical surgical scar seen on R side of chest. ABDOMEN: Soft, NT/ND. +BS in all 4Q's. No masses noted. MUSCULOSKELETAL: Normal range of motion at all joints. No bony deformities or tenderness. No CVA tenderness. EXTREMITIES: 2+ dorsalis pedis pulses, no peripheral edema noted b/l. NEUROLOGICAL: Cranial nerves II-XII intact. Normal speech. Normal gait. CBC, BMP 04/03/18 06:00 04/03/18 06:00 Active Medications Acetaminophen (Tylenol -) 650 mg PO Q6H PRN PRN Reason: FEVER Last Admin: 04/01/18 08:44 Dose: 650 mg Amlodipine Besylate (Norvasc -) 10 mg PO DAILY [facility] Last Admin: 04/03/18 09:55 Dose: 10 mg Atorvastatin Calcium (Lipitor -) 40 mg PO HS [facility] Last Admin: 04/02/18 22:07 Dose: 40 mg Heparin Sodium (Porcine) (Heparin -) 5,000 unit SQ TID [facility] Last Admin: 04/03/18 14:42 Dose: 5,000 unit Ceftriaxone Sodium 1 gm/ (Dextrose) 50 mls @ 100 mls/hr IVPB HS [facility]; Protocol Last Admin: 04/02/18 22:06 Dose: 100 mls/hr Doxycycline Hyclate 100 mg/ (Dextrose) 100 mls @ 100 mls/hr IVPB BID [facility] Last Admin: 04/03/18 09:55 Dose: 100 mls/hr Labetalol HCl (Normodyne -) 200 mg PO BID [facility] Last Admin: 04/03/18 10:31 Dose: 200 mg Potassium Chloride (K-Dur -) 20 meq PO DAILY [facility] Last Admin: 04/03/18 09:55 Dose: 20 meq ASSESSMENT/PLAN: 72M w/ pmhx of HTN, HLD, who presented with fever and generalized malaise admitted for sepsis 2/2 atypical pneumonia. #Sepsis 2/2 Atypical Pneumonia' -CXR neg with no infiltrates seen, could be viral -Rocephin 1gm IVPB; due to prolonged QTc (503 ms), will d/c Azithromycin and give Doxycycline 100 mg BID IVPB instead -Tylenol 650 mg Q6H PRN for fever -Legionella/S. Pneumo Urine Ag neg -IVf #Hypokalemia; 3.2 -KCl 10 mEq x 2 bags, KCl 20 mg PO -replete PRN; trend BMP -check Mg -KCl 20 PO QD #HTN; Per overnight, BP has been elevated overnight. -D/c Metoprolol, Switched to Labetolol 500 BID -cont Amlodipine 10 QD #HLD Cont home meds: Atorvastatin 40 HS #Ppx -SQH #FEN -IVf -recheck lytes in AM (K+) -sodium-controlled diet dispo -full code -inpatient med-surg -DC planning to short-term rehab; discussed with CM Visit type - Emergency Visit Emergency Visit: Yes ED Registration Date: 04/01/18 Care time: The patient presented to the Emergency Department on the above date and was hospitalized for further evaluation of their emergent condition. - New Patient This patient is new to me today: No - Critical Care Critical Care patient: No
--- NOTE | 2018-04-03 19:17 | PN ---
Teaching Attending Note Name of Resident: Cherelle Shane ATTENDING PHYSICIAN STATEMENT I saw and evaluated the patient. I reviewed the resident's note and discussed the case with the resident. I agree with the resident's findings and plan as documented. SUBJECTIVE: Difficulty with ambulating. OBJECTIVE: Vital Signs Temperature 97.3 F L 04/03/18 18:46 Pulse Rate 81 04/03/18 18:46 Respiratory Rate 19 04/03/18 18:46 Blood Pressure 143/83 04/03/18 18:46 O2 Sat by Pulse Oximetry (%) 94 L 04/03/18 09:00 GENERAL: A&Ox3, no acute distress EYES: PERRLA, EOMI ENT: Moist mucus membranes NECK: No JVD LUNGS: CTA, no wheezes HEART: RRR, no murmurs ABDOMEN: Soft, tender to palpation in the RUQ and RLQ, BS present MUSCULOSKELETAL: No CVA Tenderness EXTREMITIES: 2+ pulses, no edema. NEUROLOGICAL: Cranial nerves II-XII intact. CBCD WBC 15.5 K/mm3 (4.0-10.0) H 04/03/18 06:00 RBC 6.29 M/mm3 (4.00-5.60) H 04/03/18 06:00 Hgb 18.6 GM/dL (11.7-16.9) H 04/03/18 06:00 Hct 54.2 % (35.4-49) H 04/03/18 06:00 MCV 86.2 fl (80-96) 04/03/18 06:00 MCHC 34.3 g/dl (32.0-35.9) 04/03/18 06:00 RDW 16.6 % (11.9-15.9) H 04/03/18 06:00 Plt Count 264 K/MM3 (134-434) D 04/03/18 06:00 MPV 8.2 fl (7.5-11.1) 04/03/18 06:00 CMP Sodium 141 mmol/L (136-145) 04/03/18 06:00 Potassium 3.4 mmol/L (3.5-5.1) L 04/03/18 06:00 Chloride 106 mmol/L (98-107) 04/03/18 06:00 Carbon Dioxide 22 mmol/L (21-32) 04/03/18 06:00 Anion Gap 13 MMOL/L (8-16) 04/03/18 06:00 BUN 22 mg/dL (7-18) H 04/03/18 06:00 Creatinine 1.1 mg/dL (0.55-1.3) 04/03/18 06:00 Creat Clearance w eGFR > 60 (>60) 04/03/18 06:00 Random Glucose 158 mg/dL (74-106) H 04/03/18 06:00 Calcium 9.5 mg/dL (8.5-10.1) 04/03/18 06:00 Total Bilirubin 0.7 mg/dL (0.2-1) 04/02/18 06:00 AST 32 U/L (15-37) 04/02/18 06:00 ALT 19 U/L (13-61) 04/02/18 06:00 Alkaline Phosphatase 89 U/L (45-117) 04/02/18 06:00 Total Protein 9.2 g/dl (6.4-8.2) H 04/02/18 06:00 Albumin 3.9 g/dl (3.4-5.0) 04/02/18 06:00 CARDIAC ENZYMES Troponin I 0.04 ng/ml (0.00-0.05) 03/31/18 22:47 Current Medications Generic Name Dose Route Start Last Admin Trade Name Freq PRN Reason Stop Dose Admin Acetaminophen 650 mg 04/01/18 03:51 04/01/18 08:44 Tylenol - PO 650 mg Q6H PRN Administration FEVER Amlodipine Besylate 10 mg 04/02/18 10:00 04/03/18 09:55 Norvasc - PO 10 mg DAILY KEELEY Administration Atorvastatin Calcium 40 mg 04/02/18 22:00 04/02/18 22:07 Lipitor - PO 40 mg HS KEELEY Administration Heparin Sodium (Porcine) 5,000 unit 04/01/18 06:00 04/03/18 14:42 Heparin - SQ 5,000 unit TID KEELEY Administration Ceftriaxone Sodium 1 gm/ 50 mls @ 100 mls/hr 04/01/18 22:00 04/02/18 22:06 Dextrose IVPB 100 mls/hr HS [facility] Administration Protocol Doxycycline Hyclate 100 mg/ 100 mls @ 100 mls/hr 04/01/18 10:00 04/03/18 09: 55 Dextrose IVPB 100 mls/hr BID KEE[facility] Administration Labetalol HCl 200 mg 04/03/18 10:15 04/03/18 10:31 Normodyne - PO 200 mg BID KEELEY Administration Potassium Chloride 20 meq 04/01/18 10:00 04/03/18 09:55 K-Dur - PO 20 meq DAILY [facility]EE[facility] Administration Home Medications Medication Instructions Recorded Clonazepam 0.5 mg PO TID 07/04/12 Simvastatin [Zocor -] 40 mg PO DAILY 07/04/12 Zolpidem Tartrate [Ambien] 10 mg PO HS 07/04/12 Gabapentin 600 mg PO TID 03/31/18 Telmisartan/Hydrochlorothiazid 1 tab PO DAILY 03/31/18 [Telmisartan-Hctz 40-12.5 mg Tb] Amlodipine Besylate [Norvasc -] 10 mg PO DAILY #30 tablet 04/03/18 Cefuroxime Axetil [Ceftin -] 500 mg PO Q12H #14 tablet 04/03/18 Labetalol HCl [Normodyne -] 200 mg PO BID #60 tablet 04/03/18 ASSESSMENT AND PLAN: 72M w/ pmhx of HTN, HLD, who presented with fever and generalized malaise admitted for sepsis 2/2 atypical pneumonia. #Sepsis due to Pneumonia: continue rocephin 1gm and doxycycline 100mg BID day #Hypokalemia: potassium still 3.2, will continue to replete. #Hypertension: patient was hypertensive this morning with SBP > 100, start the patient on Labetolol, increased amlodipine to 10mg this morning #Hyperlipidemia: continue with lipitor #Prophylaxis: heparin subq going to rehab. waiting for insurance approval for rehab
[2018-04-03] MEDS ORDERED: DEXTROSE 5%-WATER - 50 ML IVPB ONE (22:01)
[2018-04-03] MEDS ORDERED: cefTRIAXone SODIUM 1 GM VIAL ONE (22:01)
[2018-04-03] MEDS: CEFTRIAXONE 1 GM in DEXTROSE 5%-WATER - 50 ML IVPB SCH (22:05)
[2018-04-03] MEDS: ATORVASTATIN CA 40 MG TABLET (FP) PO SCH (22:06)
[2018-04-04] MEDS: HEPARIN NA (PORCINE) 5,000 UNITS/ML 1ML VIAL SQ SCH ×2 (05:34→13:24)
[2018-04-04 07:16] VITALS: TEMP 97.5
[2018-04-04] MEDS: LABETALOL HCL 200 MG TABLET (FP) PO SCH ×2 (08:35→09:37)
[2018-04-04] MEDS: amLODIPine BESYLATE 10 MG TABLET (FP) PO SCH ×2 (08:35→09:37)
[2018-04-04 08:52] LABS: ANION GAP 9 MMOL/L (8-16); BLOOD UREA NITROGEN 31 mg/dL (7-18); CALCIUM 8.4 mg/dL (8.5-10.1); CHLORIDE 107 mmol/L (98-107); CO2 23 mmol/L (21-32); CREATININE 1.2 mg/dL (0.55-1.3); GLUCOSE,RANDOM 137 mg/dL (74-106); POTASSIUM 3.6 mmol/L (3.5-5.1); SODIUM 139 mmol/L (136-145)
--- NOTE | 2018-04-04 08:52 | PN ---
Teaching Attending Note Name of Resident: Cherelle Shane ATTENDING PHYSICIAN STATEMENT I saw and evaluated the patient. I reviewed the resident's note and discussed the case with the resident. I agree with the resident's findings and plan as documented. SUBJECTIVE: Patient is feeling better but weak. OBJECTIVE: Vital Signs Temperature 97.5 F L 04/04/18 06:00 Pulse Rate 78 04/04/18 06:00 Respiratory Rate 20 04/04/18 06:00 Blood Pressure 154/96 04/04/18 06:00 O2 Sat by Pulse Oximetry (%) 95 04/03/18 21:00 GENERAL: A&Ox3, no acute distress EYES: PERRLA, EOMI ENT: Moist mucus membranes NECK: No JVD LUNGS: CTA, no wheezes HEART: RRR, no murmurs ABDOMEN: Soft, tender to palpation in the RUQ and RLQ, BS present MUSCULOSKELETAL: No CVA Tenderness EXTREMITIES: 2+ pulses, no edema. NEUROLOGICAL: Cranial nerves II-XII intact. CBCD WBC 14.5 K/mm3 (4.0-10.0) H 04/04/18 09:35 RBC 5.75 M/mm3 (4.00-5.60) H 04/04/18 09:35 Hgb 17.1 GM/dL (11.7-16.9) H 04/04/18 09:35 Hct 49.6 % (35.4-49) H 04/04/18 09:35 MCV 86.2 fl (80-96) 04/04/18 09:35 MCHC 34.4 g/dl (32.0-35.9) 04/04/18 09:35 RDW 16.7 % (11.9-15.9) H 04/04/18 09:35 Plt Count 241 K/MM3 (134-434) 04/04/18 09:35 MPV 8.3 fl (7.5-11.1) 04/04/18 09:35 CMP Sodium 139 mmol/L (136-145) 04/04/18 07:00 Potassium 3.6 mmol/L (3.5-5.1) 04/04/18 07:00 Chloride 107 mmol/L (98-107) 04/04/18 07:00 Carbon Dioxide 23 mmol/L (21-32) 04/04/18 07:00 Anion Gap 9 MMOL/L (8-16) 04/04/18 07:00 BUN 31 mg/dL (7-18) H 04/04/18 07:00 Creatinine 1.2 mg/dL (0.55-1.3) 04/04/18 07:00 Creat Clearance w eGFR 59.18 (>60) 04/04/18 07:00 Random Glucose 137 mg/dL (74-106) H 04/04/18 07:00 Calcium 8.4 mg/dL (8.5-10.1) L 04/04/18 07:00 Total Bilirubin 0.7 mg/dL (0.2-1) 04/02/18 06:00 AST 32 U/L (15-37) 04/02/18 06:00 ALT 19 U/L (13-61) 04/02/18 06:00 Alkaline Phosphatase 89 U/L (45-117) 04/02/18 06:00 Total Protein 9.2 g/dl (6.4-8.2) H 04/02/18 06:00 Albumin 3.9 g/dl (3.4-5.0) 04/02/18 06:00 CARDIAC ENZYMES Troponin I 0.04 ng/ml (0.00-0.05) 03/31/18 22:47 Current Medications Generic Name Dose Route Start Last Admin Trade Name Freq PRN Reason Stop Dose Admin Acetaminophen 650 mg 04/01/18 03:51 04/01/18 08:44 Tylenol - PO 650 mg Q6H PRN Administration FEVER Amlodipine Besylate 10 mg 04/02/18 10:00 04/04/18 08:35 Norvasc - PO 10 mg DAILY [facility] Administration Atorvastatin Calcium 40 mg 04/02/18 22:00 04/03/18 22:06 Lipitor - PO 40 mg HS [facility] Administration Heparin Sodium (Porcine) 5,000 unit 04/01/18 06:00 04/04/18 05:34 Heparin - SQ Not Given TID [facility] Ceftriaxone Sodium 1 gm/ 50 mls @ 100 mls/hr 04/01/18 22:00 04/03/18 22:05 Dextrose IVPB 100 mls/hr HS [facility] Administration Protocol Doxycycline Hyclate 100 mg/ 100 mls @ 100 mls/hr 04/01/18 10:00 04/03/18 22: 06 Dextrose IVPB 100 mls/hr BID [facility] Administration Labetalol HCl 200 mg 04/03/18 10:15 04/04/18 08:35 Normodyne - PO 200 mg BID [facility] Administration Potassium Chloride 20 meq 04/01/18 10:00 04/03/18 09:55 K-Dur - PO 20 meq DAILY [facility] Administration Home Medications Medication Instructions Recorded Clonazepam 0.5 mg PO TID 07/04/12 Simvastatin [Zocor -] 40 mg PO DAILY 07/04/12 Zolpidem Tartrate [Ambien] 10 mg PO HS 07/04/12 Gabapentin 600 mg PO TID 03/31/18 Telmisartan/Hydrochlorothiazid 1 tab PO DAILY 03/31/18 [Telmisartan-Hctz 40-12.5 mg Tb] Amlodipine Besylate [Norvasc -] 10 mg PO DAILY #30 tablet 04/03/18 Cefuroxime Axetil [Ceftin -] 500 mg PO Q12H #14 tablet 04/03/18 Labetalol HCl [Normodyne -] 200 mg PO BID #60 tablet 04/03/18 ASSESSMENT AND PLAN: Patient is a 72yo male with pmhx of HTN, HLD, who presented with fever and generalized malaise admitted for sepsis / pneumonia. #Sepsis due to Pneumonia: on rocephin 1gm will continue 6 more days of oral ceftin and s/p 6 days of oral doxycycline 100mg BID day #Hypokalemia: potassium still 3.2--> 3.6 improved , will continue to replete. #Hypertension:better controlled now on Labetolol 200mg po bid, , increased amlodipine to 10mg #Hyperlipidemia: continue with lipitor #Prophylaxis: heparin subq discharge the patient to rehab.
[2018-04-04] MEDS: POTASSIUM CHLORIDE TABS 20 MEQ TABLET.ER (FP) PO SCH (09:38)
[2018-04-04 10:26] LABS: BASO % 0.5 % (0-2.0); EOS % 0.2 % (0-4.5); HEMATOCRIT 49.6 % (35.4-49); HEMOGLOBIN 17.1 GM/dL (11.7-16.9); LYMPH % 19.5 % (8-40); MCH 29.7 pg (25.7-33.7); MCHC 34.4 g/dl (32.0-35.9); MEAN CELL VOLUME 86.2 fl (80-96); MEAN PLT VOLUME 8.3 fl (7.5-11.1); MONO % 8.9 % (3.8-10.2); NEUT % 70.9 % (42.8-82.8); PLATELET COUNT 241 K/MM3 (134-434); RBC 5.75 M/mm3 (4.00-5.60); RDW 16.7 % (11.9-15.9); WHITE BLOOD COUNT 14.5 K/mm3 (4.0-10.0)
[2018-04-04 12:14] VITALS: BP 120/76; PULSE 80
--- NOTE | 2018-04-04 13:14 | DS ---
Physical Exam: SUBJECTIVE: Patient seen and examined at bedside. OBJECTIVE: Vital Signs Period Temp Pulse Resp BP Sys/Fischer Pulse Ox Last 24 Hr 97.2 F-97.5 F 75-100 18-20 120-164/76-104 94-95 PHYSICAL EXAM GENERAL: AAOx3. NAD. Resting comfortable. HEENT: AT/NC. EOMI. ASHLEY. Dry mucus membranes. NECK: Normal range of motion, supple without lymphadenopathy, JVD, or masses. LUNGS: Decreased BS b/l. HEART: RRR. Normal, S1, S2. +systolic murmur LUSB. Vertical surgical scar seen on R side of chest. ABDOMEN: Soft, NT/ND. +BS in all 4Q's. No masses noted. MUSCULOSKELETAL: Normal range of motion at all joints. No bony deformities or tenderness. No CVA tenderness. EXTREMITIES: 2+ dorsalis pedis pulses, no peripheral edema noted b/l. NEUROLOGICAL: Cranial nerves II-XII intact. Normal speech. Normal gait. LABS Laboratory Results - last 24 hr 04/04/18 04/04/18 07:00 09:35 WBC 14.5 H RBC 5.75 H Hgb 17.1 H Hct 49.6 H MCV 86.2 MCH 29.7 MCHC 34.4 RDW 16.7 H Plt Count 241 MPV 8.3 Absolute Neuts (auto) 10.3 H Neutrophils % 70.9 Lymphocytes % 19.5 D Monocytes % 8.9 Eosinophils % 0.2 D Basophils % 0.5 Nucleated RBC % 0 Sodium 139 Potassium 3.6 Chloride 107 Carbon Dioxide 23 Anion Gap 9 BUN 31 H Creatinine 1.2 Creat Clearance w eGFR 59.18 Random Glucose 137 H Calcium 8.4 L HOSPITAL COURSE: Date of Admission:04/01/18 72M w/ pmhx of HTN, HLD who presented with fever and generalized malaise admitted for sepsis 2/2 atypical pneumonia. In the ED, he was found to have temp 102.8, HR 122, WBC 11.2, K 3.2, Glu 14. Pt was given Rocephin and Azithromax. CXR was neg for infiltrates. During hospital stay, pt's BP was elevated and subsequently placed on Labetolol (home med Metoprolol was d/c'd) and Amlodipine increased to 10 mg. Pt's symptoms improved and he was discharged to [facility] rehab for continued physical therapy. He was also prescribed Ceftin x4 days and instructed to continue taking BP regimen given during hospital stay. Follow up with PCP within 1 week for further BP monitoring. Date of Discharge: 04/04/18 Minutes to complete discharge: 40 Discharge Summary Reason For Visit: SEPSIS DUE TO PNEUMONIA Current Active Problems Pneumonia (Acute) Condition: Improved - Instructions Diet, Activity, Other Instructions: You were seen in the hospital for complaints of fever and general malaise. In the hospital, you were found to have pneumonia. You were given antibiotics throughout your hospital stay. Your symptoms improved. You are being discharged to a rehab facility to continue your physical therapy. MEDICATION INSTRUCTIONS We have made the following change(s) to your medication(s): Please START taking Ceftin 500 mg twice a day for 4 more days. Your last day of this medication will be on April 08, 2018. Please STOP taking Metoprolol. we started you on Labetolol 200 mg twice a day, please continue taking it. follow up with your primary care doctor upon discharge from rehab. Continue taking Amlodipine 10 mg once a day. STOP taking Clonazepam and Ambien. Instead, you may take Melatonin for sleep. REFERRALS Please follow up with your primary care physician, Dr. De Souza, within 1 week. You will need outpatient blood pressure monitoring. If you experience worsening fever/chills, chest pain, shortness of breath, difficulty breathing, or other associated symptoms, please proceed to your nearest emergency room immediately. Referrals: [facility] [Outside] Yonas De Souza MD [Primary Care Provider] - 1 Week Disposition: HOME - Home Medications Comprehensive Discharge Medication List: Ambulatory Orders Simvastatin [Zocor -] 40 mg PO DAILY 07/04/12 Gabapentin 600 mg PO TID 03/31/18 Telmisartan/Hydrochlorothiazid [Telmisartan-Hctz 40-12.5 mg Tb] 1 tab PO DAILY 03/31/18 Amlodipine Besylate [Norvasc -] 10 mg PO DAILY #30 tablet 04/03/18 Labetalol HCl [Normodyne -] 200 mg PO BID #60 tablet 04/03/18 Cefuroxime Axetil [Ceftin -] 500 mg PO BID #12 tablet 04/04/18 Melatonin 5 mg PO HS PRN #30 capsule 04/04/18 This patient is new to me today: No Emergency Visit: Yes ED Registration Date: 04/01/18 Care time: The patient presented to the Emergency Department on the above date and was hospitalized for further evaluation of their emergent condition. Critical Care patient: No - Discharge Referral Referred to [facility] No
== END 2018-04-04 13:47 | disposition home or self-care (01) | DRG 871 ==
LOC: JER 21:34 → JERBED 04-01 01:44 → J5S 04-01 04:11 → OBSVTOIN 04-01 09:26
PROVIDERS: ADMIT Internal Medicine; ATTEND Internal Medicine
DX: A41.9 Sepsis, unspecified organism (principal); J18.9 Pneumonia, unspecified organism; I48.91 Unspecified atrial fibrillation; E87.6 Hypokalemia; G62.9 Polyneuropathy, unspecified; Z95.1 Presence of aortocoronary bypass graft; I45.81 Long QT syndrome; E78.5 Hyperlipidemia, unspecified; I10 Essential (primary) hypertension
CPT/HCPCS: 36415; 70450-TC; 71045-TC-FY; 80048; 80053; 81003; 81015; 82803; 83605; 83735; 84100; 84132; 84484; 85025; 85027; 85610; 85730; 87040; 87070; 87086; 87186; 87205; 87804; 87899; 93005; 93010; 97116-GP; 97162-GP; 99283-25; G0378; J0131; J1644; J7030

== ENCOUNTER 2020-10-13 13:48 | Emergency (ER) | payer OTHER, BC ==
[2020-10-13 14:25] VITALS: BMI 25.8
[2020-10-13] MEDS ORDERED: SODIUM CHLORIDE 0.9% 500 ML INFUS.BAG IV ONE (15:07)
[2020-10-13 15:14] LABS: BASO % 0.9 % (0-2.0); EOS % 0.8 % (0-4.5); HEMATOCRIT 40.8 % (35.4-49); HEMOGLOBIN 13.8 GM/dL (11.7-16.9); LYMPH % 10.4 % (8-40); MCH 29.1 pg (25.7-33.7); MCHC 33.9 g/dl (32.0-35.9); MEAN CELL VOLUME 85.8 fl (80-96); MEAN PLT VOLUME 7.3 fl (7.5-11.1); MONO % 6.6 % (3.8-10.2); NEUT % 81.3 % (42.8-82.8); PLATELET COUNT 311 10^3/uL (134-434); RBC 4.76 M/mm3 (4.00-5.60); RDW 16.7 % (11.9-15.9); WHITE BLOOD COUNT 11.2 K/mm3 (4.0-10.0)
[2020-10-13 15:27] VITALS: BP 133/68; PULSE 98; TEMP 98.4
[2020-10-13 15:35] LABS: CHLORIDE 107 mmol/L (98-107); SODIUM 140 mmol/L (136-145)
[2020-10-13 15:37] LABS: ALBUMIN 4.3 g/dl (3.4-5.0); ANION GAP 6 MMOL/L (8-16); CALCIUM 9.4 mg/dL (8.5-10.1); CO2 27 mmol/L (21-32); GLUCOSE,RANDOM 136 mg/dL (74-106); MAGNESIUM 2.4 mg/dL (1.8-2.4)
[2020-10-13 15:38] LABS: BLOOD UREA NITROGEN 16.1 mg/dL (7-18)
[2020-10-13 15:40] LABS: CREATININE 1.4 mg/dL (0.55-1.3)
[2020-10-13 15:41] LABS: SGOT/AST 20 U/L (15-37); SGPT/ALT 25 U/L (13-61)
[2020-10-13 15:42] LABS: BILIRUBIN,TOTAL 0.5 mg/dL (0.2-1); TOT PROT 8.6 g/dl (6.4-8.2)
[2020-10-13 15:43] LABS: ALK PHOS 103 U/L (45-117)
== END 2020-10-13 16:16 | disposition home or self-care (01) ==
LOC: JER 13:48
DX: F11.10 Opioid abuse, uncomplicated (principal)
CPT/HCPCS: 36415; 71045-TC-FY; 80053; 83735; 84443; 84484; 85025; 93005; 93010; 99285-25